=== PATIENT | male | born 1960 | race Caucasian/White ===

== ENCOUNTER 2021-07-09 10:05 | Emergency (ER) | payer SELFPAY ==
[~2021-07-09] VITALS: Ht 180.3 cm; Wt 82.0 kg
[2021-07-09] MEDS ORDERED: ALBUTEROL (0.083%) 2.5MG/3ML NEB HHN STA (10:14)
[2021-07-09] MEDS ORDERED: METHYLPREDNISOLONE SOD SUCC 125 MG/2 ML VIAL IV STA (10:14)
[2021-07-09] MEDS ORDERED: IPRATROPIUM BROMIDE (0.02%) 0.5MG/2.5ML NEB HHN STA (10:14)
[2021-07-09] MEDS ORDERED: AZITHROMYCIN 500MG/250ML 250 ML IV ONE (10:15)
[2021-07-09 10:50] LABS: HEMATOCRIT. 44.4 % (42.0-52.0); HEMOGLOBIN. 14.6 g/dL (14.0-18.0); MEAN CORPUSCULAR HEMOGLOBIN 27.4 pg (28.0-32.0); MEAN CORPUSCULAR VOLUME 83.2 fL (80.0-94.0); MEAN PLATELET VOLUME 7.2 fl (7.4-10.4); PLATELET 421 x1000/uL (130-400); RED BLOOD CELL COUNT 5.33 mill/uL (4.7-6.1); RED CELL DISTRIBUTION WIDTH 12.8 % (11.6-14.6)
[2021-07-09 10:57] LABS: CHLORIDE 101 mEq/L (98-107)
[2021-07-09 11:59] LABS: PLATELET ESTIMATE INCREASED
[2021-07-09] MEDS ORDERED: AZIT500T8 MT (12:36)
[2021-07-09] MEDS ORDERED: P50 MT (12:36)
[2021-07-09] MEDS ORDERED: ALBUTEROL 6.7GM HFA INHALER ORI ONE (12:45)
[2021-07-09 13:09] VITALS: BP 136/81
== END 2021-07-09 13:15 | disposition home or self-care (01) ==
LOC: ER 10:16
DX: J44.1 Chronic obstructive pulmonary disease with (acute) exacerbation (principal); R00.0 Tachycardia, unspecified; I45.10 Unspecified right bundle-branch block
CPT/HCPCS: 36415; 71045; 80053; 83880; 84484; 85025; 96365; 96366; 96368; 99284; J0456; J2930